=== PATIENT | female | born 1960 | race Caucasian/White ===

== ENCOUNTER 2023-12-28 12:23 | Emergency (ER) | payer BC, SELFPAY ==
[2023-12-28] VITALS (12 sets, daily range): BP systolic 153–196; BP diastolic 67–100; PULSE 50–66; TEMP 37.1; O2SAT 97–100; BMI 26.1
--- NOTE | 2023-12-28 13:08 | XR_ITS ---
The [address] [address] Patient Name: SADE BAXTER MRN: [id number] date: 1960 Sex: F Assigned Patient Location: ED.MAIN Current Patient Location: ER Accession/Order Number: [id number] Exam Date: 12/28/2023 13:47 Report Date: 12/28/2023 14:02 At the request of: TERRANCE REYNA Procedure: XR chest 1V Exam: Radiographs: XR chest 1V Reason for exam: Hypertension Comparison: None XR/XR chest 1V IMPRESSION: Small amount of right apical opacities are favored to be related to scarring versus fluid along the fissure. Pulmonary venous hypertension. Aortic valve prosthesis. Remainder the chest is unremarkable. Electronically authenticated by: PADMINI BARILLAS Date: 12/28/2023 14:02
--- NOTE | 2023-12-28 13:08 | ECG_ITS ---
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
--- NOTE | 2023-12-28 13:09 | CT_ITS ---
The [address] [address] Patient Name: SADE BAXTER MRN: [id number] date: 1960 Sex: F Assigned Patient Location: ER Current Patient Location: ER Accession/Order Number: [id number] Exam Date: 12/28/2023 13:42 Report Date: 12/28/2023 13:57 At the request of: TERRANCE REYNA Procedure: CT head/brain wo con CT head/brain wo con, 12/28/2023 1:42 PM EDT INDICATION: Hypertension COMPARISON: There is no appropriate prior study for comparison. TECHNIQUE: Axial CT images of the brain from skull base to vertex, including portions of the face and sinuses, were obtained without contrast . Multiplanar reformatted images were generated and reviewed as needed. Dose reduction techniques were achieved by using automated exposure control and/or adjustment of mA and/or kV according to patient size and/or use of iterative reconstruction technique. FINDINGS: The cerebral sulci as well as ventricular system are appropriate for age. There is no intracranial mass, mass effect, midline shift, intra or extra-axial fluid collection or hemorrhage. The visualized portions of orbits, mastoid air cells as well as paranasal sinuses are unremarkable. There is no suspicious osteolytic or osteoblastic lesion. CT/CT head/brain wo con IMPRESSION: No acute intracranial process is noted. Electronically authenticated by: THANG TOLLIVER Date: 12/28/2023 13:57
--- NOTE | 2023-12-28 13:16 | PC.NURSE ---
Obtained pt's urine from waiting room at this time. Clear, yellow.
[2023-12-28 13:36] LABS: Basophils Absolute Auto 0.1 10^3/uL (0.0-0.1); Basophils Percent Auto 0.8 % (0.2-2.0); Eosinophils Absolute Auto 0.1 10^3/uL (0.0-0.7); Eosinophils Percent Auto 0.8 % (0.9-7.0); Hemoglobin 14.4 g/dL (12.0-16.0); Immature Granulocytes Abs Auto 0.02 10^3/uL (0.00-0.03); Immature Granulocytes Pct Auto 0.2 % (0.0-0.5); Lymphocytes Absolute Auto 2.6 10^3/uL (1.2-3.8); Lymphocytes Percent Auto 31.8 % (20.5-60.0); Mean Corpuscular HGB Conc 35.1 g/dL (29.9-35.2); Mean Corpuscular Hemoglobin 31.6 pg (26.7-34.0); Mean Corpuscular Volume 89.9 fL (81.0-99.0); Mean Platelet Volume 9.4 fL (9.5-13.5); Monocytes Absolute Auto 0.5 10^3/uL (0.3-0.8); Monocytes Percent Auto 6.6 % (1.7-12.0); Neutrophils Absolute Auto 4.9 10^3/uL (1.4-6.5); Neutrophils Percent Auto 59.8 % (43.0-75.0); Platelet Count 211 10^3/uL (150-450); Red Blood Count 4.56 10^6/uL (4.20-5.40); Red Cell Distribution Width 12.5 % (11.0-15.0); White Blood Count 8.2 10^3/uL (4.0-11.0)
[2023-12-28 13:37] LABS: Bilirubin Urine NEGATIVE (NEGATIVE); Blood Urine NEGATIVE (NEGATIVE); Clarity Urine CLEAR (CLEAR); Color Urine LT. YELLOW (YELLOW); Glucose Urine UA NEGATIVE (NEGATIVE); Ketones Urine NEGATIVE (NEGATIVE); Leukocyte Esterase Urine TRACE (NEGATIVE); Nitrite Urine NEGATIVE (NEGATIVE); Protein Urine NEGATIVE (NEG/TRACE); Specific Gravity Urine <=1.005 (1.005-1.025); Urine Microscopic Indicated YES; pH Urine 6.5 (5.0-9.0)
[2023-12-28 13:43] LABS: Bacteria Urine TRACE #/HPF (NONE SEEN); Mucus Urine TRACE (NONE SEEN); RBC Urine 0-2 #/HPF (0-2)
[2023-12-28 13:44] LABS: Cast Seen? NONE SEEN #/LPF (NONE SEEN); Crystals Seen? None Seen #/HPF (None Seen); Squamous Epithelial Cell Urine FEW #/LPF (NONE/RARE); Urine Culture Indicated NO
[2023-12-28 13:54] LABS: INR 1.06; Lactate/Lactic Acid 0.3 mmol/L (0.4-2.0); Prothrombin Time 11.2 sec (9.0-11.6)
--- NOTE | 2023-12-28 14:05 | ED_ITS ---
HPI HPI - General Adult General Chief complaint: Dizziness Stated complaint: HIGH BLOOD PRESSURE, DIZZY, HEADACHE Time Seen by Provider: 12/28/23 13:07 Source: patient Mode of arrival: walk-in Limitations: no limitations History of Present Illness HPI narrative: Patient is a 63-year-old female with a history of prosthetic heart valve who presents to the emergency department for elevated blood pressure and diffuse tingling for the last several days. She sees cardiology at [facility], the nurse practitioner in the office recently changed her from metoprolol to propranolol. She was also given Lexapro for anxiety. She reports tingling throughout the body and the top of her head associated with a dull headache. No visual changes. She states she has had episodes of double vision in the past but has already been seen by her eye doctor and is going to a neurologist for the symptoms. She has not had any new visual loss, chest pain, shortness of breath, peripheral edema. Related Data Home Medications ?Medication ?Instructions ?Recorded ?Confirmed escitalopram oxalate 5 mg tablet 5 mg PO DAILY 12/28/23 12/28/23 (Lexapro) propranolol 60 mg capsule,24 60 mg PO DAILY 12/28/23 12/28/23 hr,extended release (Inderal LA) Previous Rx's ?Medication ?Instructions ?Recorded chvoirunsu-xfbbanmefufqr-nrhuofdq 1 cap PO Q6H PRN headache #8 caps 12/28/23 50 mg-300 mg-40 mg capsule (Fioricet) lisinopril 10 mg tablet 10 mg PO DAILY #7 tabs 12/28/23 Allergies Allergy/AdvReac Type Severity Reaction Status Date / Time No Known Drug Allergies Allergy Verified 12/28/23 12:49 Opioid HPI Opioid Management Most Recent Opioid Data: No Data to Display Review of Systems ROS Constitutional Denies: fever or chills Eyes Denies: change in vision Ears, nose, mouth, and throat Denies: throat pain or nasal congestion Cardiovascular Denies: chest pain Respiratory Denies: shortness of breath Gastrointestinal Denies: nausea or vomiting Musculoskeletal Denies: back pain or neck pain Neurological Reports: headache, numbness in extremities and dizziness; Denies: weakness in extremities Hematologic/Lymphatic Denies: easy bruising or easy bleeding Exam Narrative Exam Narrative: Gen.: Awake, alert, in no distress Head: Normocephalic, atraumatic ENT: Moist mucous membranes Respiratory: No respiratory distress, lungs clear bilaterally Cardio: Regular rate and rhythm Extremities: Moves extremities equally Psych: Normal mood and affect Neuro: No focal neuro deficit Skin: Warm, dry, intact Constitutional Vital Signs, click to edit/add: Last Vital Signs Temp 98.8 F 12/28/23 12:43 Pulse 60 12/28/23 14:40 Resp 17 12/28/23 14:40 BP 170/68 H 12/28/23 14:30 Pulse Ox 97 12/28/23 14:40 O2 Del Method Room Air 12/28/23 12:43 Course Vital Signs Vital signs: Vital Signs Temperature 98.8 F 12/28/23 12:43 Pulse Rate 50 L 12/28/23 12:43 Respiratory Rate 18 12/28/23 12:43 Blood Pressure 196/100 H 12/28/23 12:43 Pulse Oximetry 100 12/28/23 12:43 Oxygen Delivery Method Room Air 12/28/23 12:43 Temperature 98.8 F 12/28/23 12:43 Pulse Rate 60 12/28/23 14:40 Respiratory Rate 17 12/28/23 14:40 Blood Pressure 170/68 H 12/28/23 14:30 Pulse Oximetry 97 12/28/23 14:40 Oxygen Delivery Method Room Air 12/28/23 12:43 Medical Decision Making MDM Narrative Medical decision making narrative: CT of the brain, chest x-ray, lab studies are unremarkable. Patient was given hydralazine and Fioricet in the ER for symptoms. She has no focal neurodeficits and symptoms have improved on arrival to the ER. No concern for TIA or stroke at this time. Blood pressure is 153/67 on recheck at discharge. Patient will be discharged home with a prescription of lisinopril and Fioricet as needed for headache to follow-up with her senior analyst market intelligence and return to the ER if symptoms change or worsen. SUPERVISED APC VISIT, PHYSICIAN ATTESTATION: Based on the medical record the care appears appropriate. ? Medical Records Medical records reviewed: Yes I reviewed the patient's medical records Lab Data Lab results reviewed: Yes I reviewed the patient's lab results Labs: Lab Results 12/28/23 12/28/23 Range/Units 13:10 13:27 WBC 8.2 (4.0-11.0) 10^3/uL RBC 4.56 (4.20-5.40) 10^6/uL Hgb 14.4 (12.0-16.0) g/dL Hct 41.0 (36.0-48.0) % MCV 89.9 (81.0-99.0) fL MCH 31.6 (26.7-34.0) pg MCHC 35.1 (29.9-35.2) g/dL RDW 12.5 (11.0-15.0) % Plt Count 211 (150-450) 10^3/uL MPV 9.4 L (9.5-13.5) fL Neut % (Auto) 59.8 (43.0-75.0) % Lymph % (Auto) 31.8 (20.5-60.0) % Clarke % (Auto) 6.6 (1.7-12.0) % Eos % (Auto) 0.8 L (0.9-7.0) % Baso % (Auto) 0.8 (0.2-2.0) % Neut # (Auto) 4.9 (1.4-6.5) 10^3/uL Lymph # (Auto) 2.6 (1.2-3.8) 10^3/uL Clarke # (Auto) 0.5 (0.3-0.8) 10^3/uL Eos # (Auto) 0.1 (0.0-0.7) 10^3/uL Baso # (Auto) 0.1 (0.0-0.1) 10^3/uL Abs Immat Gran (auto) 0.02 (0.00-0.03) 10^3/uL Imm/Tot Granulo (auto) 0.2 (0.0-0.5) % PT 11.2 (9.0-11.6) sec INR 1.06 Sodium 141 (136-145) mmol/L Potassium 3.7 (3.5-5.1) mmol/L Chloride 105 (98-107) mmol/L Carbon Dioxide 29.2 (21.0-32.0) mmol/L Anion Gap 10.5 BUN 10.0 (7.0-18.0) mg/dL Creatinine 0.86 (0.55-1.02) mg/dL Est GFR ( Amer) >60 (>=60) Est GFR (Non-Af Amer) >60 (>=60) BUN/Creatinine Ratio 11.6 Glucose 88 (74-106) mg/dL Lactate 0.3 L (0.4-2.0) mmol/L Calcium 9.1 (8.5-10.1) mg/dL Total Bilirubin 0.7 (0.2-1.0) mg/dL AST 12 L (15-37) U/L ALT 19 (14-59) U/L Alkaline Phosphatase 85 (46-116) U/L Troponin I High Sens 9.7 (4.0-51.3) pg/mL NT-Pro-B Natriuret Pep 369.0 (<=900.0) pg/mL Total Protein 7.4 (6.4-8.2) g/dL Albumin 4.0 (3.4-5.0) g/dL Globulin 3.4 g/dL Albumin/Globulin Ratio 1.2 TSH 1.649 (0.358-3.740) uIU/mL Urine Color Lt. yellow (YELLOW) Urine Clarity Clear (CLEAR) Urine pH 6.5 (5.0-9.0) Ur Specific [place] <=1.005 A (1.005-1.025) Urine Protein Negative (NEG/TRACE) mg/dL Urine Glucose (UA) Negative (NEGATIVE) mg/dL Urine Ketones Negative (NEGATIVE) mg/dL Urine Occult Blood Negative (NEGATIVE) Urine Nitrite Negative (NEGATIVE) Urine Bilirubin Negative (NEGATIVE) Urine Urobilinogen 1.0 (0.2-1.0) EU/dL Ur Leukocyte Esterase Trace A (NEGATIVE) Urine RBC 0-2 (0-2) #/HPF Urine WBC 2-5 A (NONE SEEN) #/HPF Ur Squamous Epith Cells Few A (NONE/RARE) #/LPF Urine Crystals None seen (None Seen) #/HPF Urine Bacteria Trace A (NONE SEEN) #/HPF Urine Casts None seen (NONE SEEN) #/LPF Urine Mucus Trace A (NONE SEEN) Ur Culture Indicated? No Imaging Data CT scan - head: Attestation: I have reviewed the pertinent imaging results. Radiologist's impression: ITS Impressions Chest X-Ray 12/28/23 13:08 IMPRESSION: Small amount of right apical opacities are favored to be related to scarring versus fluid along the fissure. Pulmonary venous hypertension. Aortic valve prosthesis. Remainder the chest is unremarkable. Electronically authenticated by: PADMINI BARILLAS Date: 12/28/2023 14:[address] 12/28/23 13:09 IMPRESSION: No acute intracranial process is noted. Electronically authenticated by: THANG TOLLIVER Date: 12/28/2023 13:57 ECG Data Attestation: I personally reviewed and interpreted this ECG as follows: (Sinus bradycardia at a rate of 48, no acute ST elevation or ectopy. EKG reviewed by attending physician) Discharge Plan Discharge Stand Alone Forms: Portal Instructions Chief Complaint: Dizziness Clinical Impression: Hypertension Patient Disposition: Home, Self-Care Time of Disposition Decision: 15:05 Condition: Good Prescriptions / Home Meds: New zmawgyzwmv-gnqybhpasoclz-gekk [Fioricet] 50-300-40 mg capsule 1 cap PO Q6H PRN (Reason: headache) Qty: 8 0RF Rx Instructions: DX: R51.9 lisinopril 10 mg tablet 10 mg PO DAILY Qty: 7 0RF No Action propranolol [Inderal LA] 60 mg capsule,extended release 24 hr 60 mg PO DAILY escitalopram oxalate [Lexapro] 5 mg tablet 5 mg PO DAILY Print Language: Polish Instructions: Hypertension (ED) Additional Instructions: Call your senior analyst market intelligence office today or tomorrow to be scheduled for reevaluation Referrals: LUIS GARCIA [Primary Care Provider] - 1 week
[2023-12-28] MEDS: KETOROLAC TROMETHAMINE 30 MG/ML VIAL IVP (14:18)
[2023-12-28] MEDS: HYDRALAZINE HCL 20 MG/ML VIAL 10 MG IVP (14:18)
[2023-12-28 14:33] LABS: Alanine Aminotransferase 19 U/L (14-59); Albumin Globulin Ratio 1.2; Alkaline Phosphatase 85 U/L (46-116); Anion Gap 10.5; Aspartate Amino Transferase 12 U/L (15-37); BUN Creatinine Ratio 11.6; Bilirubin Total 0.7 mg/dL (0.2-1.0); Calcium 9.1 mg/dL (8.5-10.1); Carbon Dioxide 29.2 mmol/L (21.0-32.0); Chloride 105 mmol/L (98-107); Estimated GFR (African America >60 (>=60); Estimated GFR (Non-African Ame >60 (>=60); Globulin 3.4 g/dL; Glucose 88 mg/dL (74-106); Potassium 3.7 mmol/L (3.5-5.1); Sodium 141 mmol/L (136-145); Total Protein 7.4 g/dL (6.4-8.2); Troponin I High Sensitivity 9.7 pg/mL (4.0-51.3)
[2023-12-28 14:34] LABS: Thyroid Stimulating Hormone 1.649 uIU/mL (0.358-3.740)
== END 2023-12-28 15:15 | disposition home or self-care (01) ==
PROVIDERS: Physician Assistant; Emergency Provider Emergency Medicine; PCP Family Medicine
DX: I10 Essential (primary) hypertension (principal); Z95.2 Presence of prosthetic heart valve; Z79.899 Other long term (current) drug therapy; F41.9 Anxiety disorder, unspecified
CPT/HCPCS: 36415; 70450; 71045; 80053; 81001; 83605; 83880; 84443; 84484; 85025; 85610; 93005; 96374; 96375; 99285; J0360; J1885